=== PATIENT | female | born 1995 | race Caucasian/White ===

== ENCOUNTER 2017-10-05 04:38 | Emergency (ER) | payer BC ==
[~2017-10-05] VITALS: Ht 152.4 cm; Wt 56.7 kg
--- NOTE | 2017-10-05 05:09 | NUR ---
22/F Pt BIB SELF FROM HOME C/O NECK PAIN FOR THE PAST 2 DAYS, DENIES ANY TRAUMA. Pt IS SITTING ON CHAIR, INSTEAD OF BED, STATED THAT SHE PREFERS TO BE SITTING UP ON A CHAIR. VSS. Pt WAITING TO BE SEEN BY .
--- NOTE | 2017-10-05 06:00 | NUR ---
TALKING TO MD AT BEDSIDE
--- NOTE | 2017-10-05 06:12 | NUR ---
Patient discharged to home in stable condition. Written and verbal after care instructions given. Patient verbalizes understanding of instruction.
[2017-10-05 06:13] VITALS: BP 103/55
== END 2017-10-05 06:19 | disposition home or self-care (01) ==
LOC: ER 04:38
DX: S19.9XXA Unspecified injury of neck, initial encounter (principal); K50.90 Crohn's disease, unspecified, without complications; X50.0XXA Overexertion from strenuous movement or load, initial encounter; Y93.89 Activity, other specified; Y92.89 Other specified places as the place of occurrence of the external cause; Y99.0 Civilian activity done for income or pay
CPT/HCPCS: A4606; Z7610